=== PATIENT | female | born 1945 | race Caucasian/White ===

== ENCOUNTER 2024-12-23 07:55 | Inpatient (IN) ==
--- NOTE | 2024-12-03 13:51 | PAT Medication Instructions ---
Medication Instructions Date of Service December 03, 2024 Home Medications abaloparatide (Tymlos) 80 mcg subcut HS acetaminophen 650 mg tablet,extended release 1,300 mg PO TID ascorbic acid (vitamin C) 1,000 mg tablet (Vitamin C) 1,000 mg PO QAM aspirin 81 mg tablet 81 mg PO QAM calcium carbonate (Calcium 600) 600 mg PO QAM cholecalciferol (vitamin D3) 125 mcg (5,000 unit) tablet (Vitamin D3) 125 mcg PO QAM coQ10 (ubiquinol) 200 mg capsule 200 mg PO QAM cyanocobalamin (vitamin B-12) 1,000 mcg tablet (Vitamin B-12) 1,000 mcg PO QAM hydrochlorothiazide 12.5 mg tablet 12.5 mg PO QAM lisinopril 10 mg tablet 10 mg PO QAM multivitamin 1 tab PO QAM pyridoxine (vitamin B6) 100 mg tablet (Vitamin B-6) 100 mg PO QAM simvastatin 20 mg tablet 20 mg PO HS ASK your prescriber and surgeon abaloparatide (Tymlos) 80 mcg subcut HS STOP taking 2 weeks before surgery coQ10 (ubiquinol) 200 mg capsule 200 mg PO QAM DO NOT take the morning of surgery ascorbic acid (vitamin C) 1,000 mg tablet (Vitamin C) 1,000 mg PO QAM calcium carbonate (Calcium 600) 600 mg PO QAM cholecalciferol (vitamin D3) 125 mcg (5,000 unit) tablet (Vitamin D3) 125 mcg PO QAM cyanocobalamin (vitamin B-12) 1,000 mcg tablet (Vitamin B-12) 1,000 mcg PO QAM hydrochlorothiazide 12.5 mg tablet 12.5 mg PO QAM lisinopril 10 mg tablet 10 mg PO QAM multivitamin 1 tab PO QAM pyridoxine (vitamin B6) 100 mg tablet (Vitamin B-6) 100 mg PO QAM Take morning of surgery With a small sip of water, OTHERWISE NOTHING TO EAT OR DRINK AFTER MIDNIGHT: acetaminophen 650 mg tablet,extended release 1,300 mg PO TID (if needed) aspirin 81 mg tablet 81 mg PO QAM (unless surgeon directed otherwise) Take evening before surgery acetaminophen 650 mg tablet,extended release 1,300 mg PO TID simvastatin 20 mg tablet 20 mg PO HS Other Notes If you have any questions please call us at [phone] or [phone] or [phone] or [phone]
--- NOTE | 2024-12-10 11:55 | Anesthesiology Consultation ---
Date of Service December 10, 2024 Assessment & Plan (1) Encounter for pre-operative examination: - awaiting surgeon ordered medical clearance, Dr. Ruth Avila 12/19/24. Chart Review Chart Review: Pending: Refer to Additional Notes / Consult section and Patient seen in Pre Admission Testing Teaching & Discussion Pre-Anesthesia Teaching/Discussion Notes: Instructed NPO after midnight before surgery, except medications with 15 cc of water. Medication instructions provided according to the PAT guidelines. History Surgery Operation Date: 12/23/24 09:10 Proposed Procedures p L4-S1 Decompression and Fusion, Spinal Cord Monitoring - Nic Rivera, Height/Weight Height: 5 ft Weight: 60.6 kg Allergies Allergy/AdvReac Type Severity Reaction Status Date / Time No Known Allergies Allergy Verified 12/02/24 15:58 Medications Home Medications Medication Instructions Recorded Confirmed Last Taken abaloparatide (Tymlos) 80 mcg subcut HS 12/02/24 12/02/24 Unknown acetaminophen 650 mg 1,300 mg PO TID 12/02/24 12/02/24 Unknown tablet,extended release ascorbic acid (vitamin C) 1,000 mg 1,000 mg PO QAM 12/02/24 12/02/24 Unknown tablet (Vitamin C) aspirin 81 mg tablet 81 mg PO QAM 12/02/24 12/02/24 Unknown calcium carbonate (Calcium 600) 600 mg PO QAM 12/02/24 12/02/24 Unknown cholecalciferol (vitamin D3) 125 125 mcg PO QAM 12/02/24 12/02/24 Unknown mcg (5,000 unit) tablet (Vitamin D3) coQ10 (ubiquinol) 200 mg capsule 200 mg PO QAM 12/02/24 12/02/24 Unknown cyanocobalamin (vitamin B-12) 1,000 mcg PO QAM 12/02/24 12/02/24 Unknown 1,000 mcg tablet (Vitamin B-12) hydrochlorothiazide 12.5 mg tablet 12.5 mg PO QAM 12/02/24 12/02/24 Unknown lisinopril 10 mg tablet 10 mg PO QAM 12/02/24 12/02/24 Unknown multivitamin 1 tab PO QAM 12/02/24 12/02/24 Unknown pyridoxine (vitamin B6) 100 mg 100 mg PO QAM 12/02/24 12/02/24 Unknown tablet (Vitamin B-6) simvastatin 20 mg tablet 20 mg PO HS 12/02/24 12/02/24 Unknown Past Medical History Medical History (Updated 12/10/24 @ 12:18 by Katarina Perales PA-C) Hyperlipidemia Hypertension controlled, stable per pt Osteoarthritis Osteoporosis Patient denies h/o stroke, seizures, heart attack, heart failure, DM, blood clots/DVTs or blood transfusions. Exercise / Class Metabolic Activity III < 4 Walking/Shop/Light housework (ambulates with walker, denies chest discomfort or shortness of breath with usual activities) Past Family History Family History Other No family history of adverse response to anesthesia Past Surgical History Surgical History History of bilateral cataract extraction History of bilateral tubal ligation History of section x2 History of colonoscopy History of thyroid surgery had benign mass removed was told she had "thyroiditis" History of wisdom tooth extraction Past Anesthesia History No Hx of Anesthesia Complications and No Family Hx of Anesthesia Complications History of PONV No Hx of PONV and No Hx of Motion Sickness Social History Smoking Status: Never smoker Do You Dip or Chew Tobacco: No Hx Alcohol Use: No Hx Substance Use: No Review of Systems Patient denies chest pain, shortness of breath, dyspnea on exertion, snoring, witnessed apneas, reflux, fever, chills, cough, wheezing, or palpitations. Physical Exam Vital Signs Vitals BP 114/69 P 70 TEMP 98.6 SP02 96% on RA RESP 18 Physical Patient resting comfortably in chair in no acute distress, alert and oriented, responding appropriately throughout visit Full cervical extension range of motion without pain TMD 3.5 finger breadths Mallampati Score 2 Dentition: several caps; denies chipped or loose teeth, crowns, implants or bridges Lungs: normal respiratory effort. Good air movement, clear throughout to auscultation, no adventitious breath sounds Cardiac: regular rate and rhythm, no murmurs noted Carotid arteries: negative bruit bilat Lab Results Anesthesia Preop Results Results Anesthesia Widget: WBC 10.55 K/ul (4.8-10.8) 12/10/24 Hgb 11.1 g/dl (12.0-16.0) L 12/10/24 Hct 32.5 % (37.0-47.0) L 12/10/24 Plt 309 K/uL (130-400) 12/10/24 Na 134 mmol/L (136-145) L 12/10/24 K 4.2 mmol/L (3.5-5.1) 12/10/24 Cl 100 mmol/L (98-107) 12/10/24 CO2 27 mmol/L (21-32) 12/10/24 BUN 15 mg/dl (6-23) 12/10/24 Creat 0.54 mg/dl (0.6-1.2) L 12/10/24 Glucose Level 98 mg/dl (70-99(Fasting)) 12/10/24 PT 10.8 Seconds (9.0-12.0) 12/10/24 PTT 26 Seconds (21-31) 12/10/24 INR 1.0 (0.9-1.1) 12/10/24 Urine Color Yellow 12/10/24 Urine Appearance Clear (Clear) 12/10/24 Urine pH 7.5 (4.5-7.5) 12/10/24 Urine Specific [place] 1.015 (1.000-1.030) 12/10/24 Urine Protein Negative (Negative) 12/10/24 Urine Glucose (UA) Negative (Negative) 12/10/24 Urine Ketones Trace (Negative) H 12/10/24 Urine Blood Negative (Negative) 12/10/24 Urine Nitrite Negative (Negative) 12/10/24 Urine Bilirubin Negative (Negative) 12/10/24 Urine Urobilinogen Negative (Negative) 12/10/24 Urine Leukocyte Esterase Negative (Negative) 12/10/24 Blood Type A Positive 12/10/24 Antibody Screen NEGATIVE 12/10/24 Testing Electrocardiogram Date: 12/10/24 NSR, rate 69 bpm Chest X-Ray Date: 12/10/24 No acute findings.
[2024-12-23] MEDS ORDERED: PROPOFOL IV EMULSION 10 MG/ML 20 ML VIAL IV ONE (08:51)
[2024-12-23] MEDS ORDERED: GLYCOPYRROLATE 0.2 MG/ML VIAL ONE (08:51)
[2024-12-23] MEDS ORDERED: fentaNYL citrate PF 100 MCG/2 ML VIAL ONE (08:51)
[2024-12-23] MEDS ORDERED: ONDANSETRON INJ 2 MG/ML 2 ML VIAL ONE (08:51)
[2024-12-23] MEDS ORDERED: DEXAMETHASONE SOD INJ 4 MG/ML VIAL ONE (08:51)
[2024-12-23] MEDS ORDERED: LIDOCAINE 2% 2 ML VIAL/AMP(20MG/ML) INFIL ONE (08:51)
[2024-12-23] MEDS ORDERED: ROCURONIUM BROMIDE 10 MG/ML 5 ML VIAL IV ONE (08:51)
[2024-12-23] MEDS ORDERED: SUGAMMADEX SODIUM 200 MG/2 ML VIAL IV ONE (08:51)
[2024-12-23] MEDS: LR 15ML/HR IV SCH (08:55)
[2024-12-23] MEDS: LR 60ML/HR IV SCH (08:55)
[2024-12-23] MEDS: ACETAMINOPHEN 500 MG TAB PO SCH (08:56)
[2024-12-23] MEDS: GABAPENTIN 300 MG CAP PO SCH (08:56)
[2024-12-23] MEDS: CeleBREX 200 MG CAP PO SCH (08:56)
--- NOTE | 2024-12-23 09:03 | History & Physical Bridge Note ---
Date of Service December 23, 2024 History & Physical Bridge Note I have examined the patient, reviewed the History & Physical and in the interval since the performance of the History & Physical I have noted the following changes of clinical significance: no changes noted
--- NOTE | 2024-12-23 09:04 | History & Physical Report ---
Date of Service December 23, 2024 Assessment & Plan (1) Two-level lumbosacral spondylosis with radiculopathy: Plan: L4-S1 decompression and fusion History of Present Illness Chief Complaint: Back and leg pain Primary Care Provider: Ruth Avila MD This is a 79-year-old female presents with chronic persistent back and leg pain after failing course of nonoperative care she is here for surgical invention. Allergies Allergy/AdvReac Type Severity Reaction Status Date / Time No Known Allergies Allergy Verified 12/23/24 08:16 Home Medications Medication Instructions Recorded Confirmed Type abaloparatide (Tymlos) 80 mcg subcut 12/02/24 12/23/24 History acetaminophen 650 mg 1,300 mg PO TID 12/02/24 12/23/24 History tablet,extended release ascorbic acid (vitamin C) 1,000 mg 1,000 mg PO [facility] 12/02/24 12/23/24 History tablet (Vitamin C) aspirin 81 mg tablet 81 mg PO [facility] 12/02/24 12/23/24 History calcium carbonate (Calcium 600) 600 mg PO [facility] 12/02/24 12/23/24 History cholecalciferol (vitamin D3) 125 125 mcg PO [facility] 12/02/24 12/23/24 History mcg (5,000 unit) tablet (Vitamin D3) coQ10 (ubiquinol) 200 mg capsule 200 mg PO [facility] 12/02/24 12/23/24 History cyanocobalamin (vitamin B-12) 1,000 mcg PO [facility] 12/02/24 12/23/24 History 1,000 mcg tablet (Vitamin B-12) hydrochlorothiazide 12.5 mg tablet 12.5 mg PO [facility] 12/02/24 12/23/24 History lisinopril 10 mg tablet 10 mg PO [facility] 12/02/24 12/23/24 History multivitamin 1 tab PO [facility] 12/02/24 12/23/24 History pyridoxine (vitamin B6) 100 mg 100 mg PO [facility] 12/02/24 12/23/24 History tablet (Vitamin B-6) simvastatin 20 mg tablet 20 mg PO 12/02/24 12/23/24 History Past Med/Surg History Problem List (Updated 12/23/24 @ 09:03 by Nic Rivera DO) Two-level lumbosacral spondylosis with radiculopathy Encounter for pre-operative examination Medical History (Updated 12/23/24 @ 09:03 by Nic Rivera DO) Osteoarthritis Osteoporosis Hypertension controlled, stable per pt Hyperlipidemia Surgical History History of bilateral tubal ligation History of colonoscopy History of section x2 History of wisdom tooth extraction History of thyroid surgery had benign mass removed was told she had "thyroiditis" History of bilateral cataract extraction Family History Other No family history of adverse response to anesthesia Social History (System 12/02/24 @ 15:58 by Cary Guido) Smoking Status: Never smoker Second Hand Exposure: No; Do You Dip or Chew Tobacco: No; Tobacco Cessation Education Requested by Patient: No Hx Alcohol Use: No Hx Substance Use: No Preferred Language: [place]an Communication Ability: Effective Diesel Engine Specialist Required: No Beliefs That Will Affect Care: None Current Living Situation: Family Current Living Situation Comment: Daughter lives with pt Other Information That Helps Us Care for You: No Feels Safe at Home: Yes Safety Concerns: Feels Safe At This Time Assistive Devices: Glasses and Walker Physical Exam Physical Exam: Patient is alert and oriented Heart regular rhythm Lungs clear Results & Data Results & Data Vital Signs (Past 12 Hours) Vital Signs Temp Pulse Resp BP Pulse Ox O2 Del Method 12/23/24 08:21 36.7 C 81 20 149/70 H 97 Room Air
[2024-12-23] MEDS ORDERED: fentaNYL citrate PF 100 MCG/2 ML VIAL IV PRN (09:26)
[2024-12-23] MEDS ORDERED: ePHEDrine sulfate 50 MG/ML AMP IV PRN (09:26)
[2024-12-23] MEDS ORDERED: ATROPINE SULFATE 0.1 MG/ML 10ML SYR IV PRN (09:26)
[2024-12-23] MEDS ORDERED: ONDANSETRON INJ 2 MG/ML 2 ML VIAL IV PRN ×2 (09:26→14:05)
[2024-12-23] MEDS: ceFAZolin 2000MG 2,000 MG/15 ML SYR IV SCH (09:48)
[2024-12-23] MEDS: BUPIVACAINE/EPINEPHRINE 0.5% MPF 1:200,000 30 ML VIAL ONE (10:21)
[2024-12-23] MEDS: ceFAZolin 330 MG/ML 1 GM VIAL ONE ×2 (10:22→11:45)
[2024-12-23] MEDS: IOPAMIDOL INJ 61% 15 ML VIAL INSTIL ONE (11:05)
[2024-12-23] MEDS: FLOSEAL HEMOSTATIC MATRIX 10ML TOP ONE (11:45)
--- NOTE | 2024-12-23 12:00 | Operative Report ---
Post Operative Report Pre & Post Diagnosis Operation Date: 12/23/24 09:15 Pre-Op Diagnosis: #1 lumbosacral Spondylosis with Radiculopathy #2 spondylolisthesis L4-L5 L5-S1 #3 lumbar spinal stenosis Post-Op Diagnosis: Same I identified the patient and participated in the time-out.: Yes Procedure Operation Date: 12/23/24 09:15 Actual Procedures #1 lumbar decompression with bilateral medial facetectomies and foraminotomies L3-L4, L4-L5 and L5-S1 for #2 posterior spinal fusion L4-S1. #3 placed posterior instrumentation L4-S1 using Deras. #4 kyphoplasty L4 and S1 vertebral bodies. #5 interbody fusion L4-5 S1. #6 placement of Spira 13 x 26 mm at L5-S1. #7 placement infuse collagen sponge combined with Koros in the posterior lateral gutters and os design interbody space. #8 application of versa wrap of the exposed dura. Surgeon Nic Rivera, Enrichment Assistant Marisol Ann Estimated Blood Loss 200 Findings Consistent with Post-Op Diagnosis Specimens None Indications This is a 79-year-old female presents above-mentioned diagnosis of failed course of nonoperative care she is here for surgical invention. Description of Procedure Patient was met with identified informed consent obtained. Patient was then taken to the operative suite underwent and patient placed in prone position on the Nathan table atop the Enrique frame. All bony prominences well-padded eyes inspected to ensure no external precipice upon the. This point the lumbar spine was prepped and draped in normal sterile fashion. Sharp dissection with the assistance of Bovie cautery from down to and exposing the lamina transverse processes of L4-L5 and the sacral ala bilaterally. From a [place] fashion complete laminectomy of L5 was performed including bilateral medial facetectomies and foraminotomies addressing severe neural compression. This was followed by complete laminectomy of L4 with bilateral medial facetectomies and foraminotomies again addressing severe neural compression and lastly partial laminectomy of L3 with bilateral medial facetectomies to address all subarticular stenosis. In light of her history of osteoporotic compression fracture and osteopenia I then performed a preoperative kyphoplasty of L4 and S1 followed by placement of screws at L4 and S1 into the cement. L5 pedicle screws were also placed. The proper size dana was then contoured and placed. By way of transfer approach on the right a complete discectomy of L5-S1 was performed endplates guided to subcortically bone and a 13 x 26 mm spiral cage filled with os design bone graft tapped in position. Rods were then compressed locked in final position bilaterally. Transverse processes of L4-5 and the sac ral ala burred to subcortically bone. Infuse collagen sponge combined with Koros was placed in the posterolateral gutters. First wrap placed over the exposed dura. 15 round NAS drain inserted. The incision was then closed with 1 Vicryl the fascia 2-0 Vicryl subcutaneously and 4 Monocryl for final skin closure. Steri-Strips sterile dressing placed. Patient waken taken the PACU stable condition. Please note Marisol Ann was present of the entire procedure and on the patient positioning complex portion of the surgery and final skin closure. I attest to the content of the Intraoperative Record and any orders documented therein. Any exceptions are noted below.
--- NOTE | 2024-12-23 13:02 | Fluoroscopy Report ---
FL lumbar spine 2-3V CLINICAL HISTORY: L4-S1 DECOMPRESSION AND FUSION COMPARISON STUDY: None FLUOROSCOPY TIME: 67 seconds FLUOROSCOPY IMAGES: 3 EXPOSURE DOSE: 38 mGy FINDINGS: Fluoroscopy was provided for lower lumbar metallic fusion. IMPRESSION: Intraoperative fluoroscopy. ACT 112: Negative or not required by law. Electronically signed by: Tim Mendenhall M.D. 12/23/2024 1:01 PM
--- NOTE | 2024-12-23 13:51 | Anesthesiology Progress Note ---
Date of Service December 23, 2024 Anesthesia Post Procedure Vital Signs Vital Signs: Temp Pulse Pulse Resp BP BP Pulse Ox 12/23/24 13:35 58 L 16 106/50 L 99 12/23/24 13:25 63 18 110/54 L 100 12/23/24 13:15 36.4 C L 57 L 15 104/49 L 100 12/23/24 13:05 58 L 16 109/48 L 99 12/23/24 12:55 62 16 112/51 L 99 12/23/24 12:45 59 L 18 116/50 L 100 12/23/24 12:35 60 20 120/53 L 100 12/23/24 12:25 61 20 124/51 L 100 12/23/24 12:17 36.3 C L 73 20 137/55 L 100 12/23/24 08:21 36.7 C 81 20 149/70 H 97 O2 Del Method O2 Flow Rate 12/23/24 13:35 Nasal Cannula 2 12/23/24 13:25 Nasal Cannula 2 12/23/24 13:15 Nasal Cannula 2 12/23/24 13:05 Nasal Cannula 2 12/23/24 12:55 Nasal Cannula 2 12/23/24 12:45 Nasal Cannula 2 12/23/24 12:35 Nasal Cannula 2 12/23/24 12:25 Nasal Cannula 4 12/23/24 12:17 Nasal Cannula 4 12/23/24 08:21 Room Air Pain Intensity Lower Back: Pain Intensity: 2 Transfer of Care Handoff Completed per policy Notes Mental Status: alert / awake / arousable Patient Amnestic to Procedure: Yes Nausea / Vomiting: adequately controlled Pain: adequately controlled Airway Patency, RR, SpO2: stable & adequate BP & HR: stable & adequate Hydration State: stable & adequate Anesthetic Complications: no major complications apparent and Pt Satisfied with anesthetic care
[2024-12-23] MEDS ORDERED: NALOXONE HCL 0.4 MG/1 ML VIAL/CARP IV PRN (14:05)
[2024-12-23] MEDS ORDERED: LORazepam 0.5 MG TAB PO PRN (14:05)
[2024-12-23] MEDS ORDERED: LORazepam 2 MG/1 ML VIAL IV PRN (14:05)
[2024-12-23] MEDS ORDERED: SOD PHOSPHATE/SOD BIPHOSPHATE ENEMA 132 ML BTL PR PRN (14:05)
[2024-12-23] MEDS ORDERED: FAMOTIDINE 20 MG TAB PO PRN (14:05)
[2024-12-23] MEDS ORDERED: ALUMINUM/MAGNESIUM SUSP 30 ML UDC PO PRN (14:05)
[2024-12-23] MEDS ORDERED: METOCLOPRAMIDE HCL INJ 5 MG/ML 2 ML VIAL IV PRN (14:05)
[2024-12-23] MEDS ORDERED: DO NOT ADMINISTER FLU VACCINE PRN (14:05)
[2024-12-23] MEDS ORDERED: ONDANSETRON 4 MG OD TAB PO PRN (14:05)
[2024-12-23] MEDS ORDERED: HYDROmorphone INJ 1 MG/ML SYRINGE IV PRN (14:05)
[2024-12-23] MEDS ORDERED: hydrOXYzine HCl 25 MG TAB PO PRN (14:05)
[2024-12-23] MEDS ORDERED: diphenhydrAMINE Capsule 25 MG CAP PO PRN (14:05)
[2024-12-23] MEDS ORDERED: PROMETHAZINE 12.5 MG/50.5 ML BAG IV PRN (14:05)
[2024-12-23] MEDS ORDERED: ACETAMINOPHEN 1,000 MG/100 ML VIAL IV PRN (14:05)
[2024-12-23] MEDS ORDERED: DO NOT ADMINISTER PNEUMOCOCCAL VACCINE PRN (14:05)
[2024-12-23] MEDS ORDERED: MAGNESIUM HYDROXIDE SUSP 30 ML UDC PO PRN (14:05)
[2024-12-23] MEDS ORDERED: bisacodyL 10 MG SUPP PR PRN (14:05)
--- NOTE | 2024-12-23 15:35 | Consultation ---
Date of Consultation December 23, 2024 Assessment & Plan (1) Two-level lumbosacral spondylosis with radiculopathy: (2) Hyperlipidemia: (3) Hypertension: (4) Osteoporosis: Plan This is a 79 yr old F who has a significant PMH of HTN, HLD and osteoporosis who presents to ED 2/2 elective lumbar procedure. #Two-level lumbosacral spondylosis with radiculopathy #S/P L4-S1 decompression fusion, POD #[address] Rivera tolerated procedure well admitted to medical pain/wound management per ortho EBL 200ml, pre op hgb 11.1 #HTN: bp controlled, hold HCTZ, lisinopril until bp re evaluated in am. resume as able #HLD: continue statin, chronic, stable #Osteoporosis: chronic, stable continue nightly Tymlos when family brings in supply #DVT ppx: SCDS FULL CODE PCP: MD Margarita Dispo: admitted to medical Pt was seen and examined in collaboration with Dr. Chen, please see addendum I spent a total of 45 minutes coordinating, documenting and providing care for this patient excluding time spent in the performance of separately billed services or time spent by another provider/QHP. Thank you for this consultation. We will follow the patient with you during their hospital stay. You can reach a member of the [facility] Hospitalist Team 29/01 via hospitalist role on tiger text. Supervising Physician Co-Signing Physician Notes Attending Addendum: Case reviewed with the advanced practitioner. I have reviewed the advanced practitioner's documentation on the date of service referenced in note, and I agree with, and take responsibility for the plan of care. please refer to her notes for full details patient seen and examined, records reviewed by myself as well diagnoses and plan of care as per advanced practitioner's notes I spent a total of 25 minutes coordinating, documenting, and providing care for this patient, excluding time spent in the performance of separately billed services or time spent by another provider/QHP. Henry Chen MD History of Present Illness Requesting Physician: Dr. Rivera Reason for Consultation: Post op medical management Attending Physician: Nic Rivera DO History of Present Illness This is a 79 yr old F who has a significant PMH of HTN, HLD and osteoporosis who presents to ED 2/2 elective lumbar procedure. She underwent an L4-S1 decompression fusion by Dr. Rivera and tolerated the procedure well. Her 2 sons, daughter in law and another friend are at bedside. She tolerated the procedure well. She is having some incisional back pain. Denies f/c/s, chest pain, sob, n/v/d, change in bowel or urinary habits pre procedure. She did not take her BP meds this a.m. SHe follows with Dr. Avila in [place]. SHe endorses no post operative concerns. Allergies Allergy/AdvReac Type Severity Reaction Status Date / Time No Known Allergies Allergy Verified 12/23/24 08:16 Home Medications Medication Instructions Recorded Confirmed Type abaloparatide (Tymlos) 80 mcg subcut 12/02/24 12/23/24 History acetaminophen 650 mg 1,300 mg PO TID 12/02/24 12/23/24 History tablet,extended release ascorbic acid (vitamin C) 1,000 mg 1,000 mg PO [facility] 12/02/24 12/23/24 History tablet (Vitamin C) aspirin 81 mg tablet 81 mg PO [facility] 12/02/24 12/23/24 History calcium carbonate (Calcium 600) 600 mg PO [facility] 12/02/24 12/23/24 History cholecalciferol (vitamin D3) 125 125 mcg PO [facility] 12/02/24 12/23/24 History mcg (5,000 unit) tablet (Vitamin D3) coQ10 (ubiquinol) 200 mg capsule 200 mg PO [facility] 12/02/24 12/23/24 History cyanocobalamin (vitamin B-12) 1,000 mcg PO [facility] 12/02/24 12/23/24 History 1,000 mcg tablet (Vitamin B-12) hydrochlorothiazide 12.5 mg tablet 12.5 mg PO [facility] 12/02/24 12/23/24 History lisinopril 10 mg tablet 10 mg PO [facility] 12/02/24 12/23/24 History multivitamin 1 tab PO [facility] 12/02/24 12/23/24 History pyridoxine (vitamin B6) 100 mg 100 mg PO [facility] 12/02/24 12/23/24 History tablet (Vitamin B-6) simvastatin 20 mg tablet 20 mg PO 12/02/24 12/23/24 History Patient History Medical History Osteoarthritis Osteoporosis Hypertension controlled, stable per pt Hyperlipidemia Surgical History History of bilateral tubal ligation History of colonoscopy History of section x2 History of wisdom tooth extraction History of thyroid surgery had benign mass removed was told she had "thyroiditis" History of bilateral cataract extraction Family History Other No family history of adverse response to anesthesia Social History Smoking Status: Never smoker Second Hand Exposure: No; Do You Dip or Chew Tobacco: No; Tobacco Cessation Education Requested by Patient: No Hx Alcohol Use: No Hx Substance Use: No Preferred Language: Slovak Communication Ability: Effective Assistant Plant Control Operator Required: No Beliefs That Will Affect Care: None Current Living Situation: Family Current Living Situation Comment: Daughter lives with pt Other Information That Helps Us Care for You: No Feels Safe at Home: Yes Safety Concerns: Feels Safe At This Time Assistive Devices: Glasses and Walker Review of Systems Review of Systems: All systems reviewed & are unremarkable except as noted in HPI & below Physical Exam Physical Exam: Constitutional: WD/WN, vitals as above, NAD, sitting up in bed, pleasant, conversing easily Head: Normocephalic, Atraumatic Eyes: PERRL, conjunctivae normal, anicteric sclerae ENMT: external ear and nose normal, oropharynx normal Neck: trachea midline, no thyromegaly normal visual inspection Respiratory: normal respiratory effort, lungs clear to auscultation, no wheeze, rales, rhonchi. Normal insp/exp effort, no accessory muscle use Cardiovascular: RRR, no murmur, no edema Vessels: no JVD or carotid bruit Chest: normal inspection of chest Abdomen: normal bowel sounds, soft, nontender, no hepatosplenomegaly Musculoskeletal: no cyanosis or clubbing, arom x4, NAS drain with serosang drainage Skin: no rashes, warm and dry normal turgor Neurologic: no face palsy, no dysarthria CN's II-XI intact bilaterally and moves all extremities Psychiatric: A+Ox3, euthymic affect : galloway draining yellow urine Results & Data Vital Signs (Past 12 Hours) Vital Signs Temp Pulse Pulse Resp BP BP Pulse Ox 12/23/24 14:35 36.4 C L 77 16 119/70 96 12/23/24 14:00 36.5 C 83 15 102/61 97 12/23/24 13:35 58 L 16 106/50 L 99 12/23/24 13:25 63 18 110/54 L 100 12/23/24 13:15 36.4 C L 57 L 15 104/49 L 100 12/23/24 13:05 58 L 16 109/48 L 99 12/23/24 12:55 62 16 112/51 L 99 12/23/24 12:45 59 L 18 116/50 L 100 12/23/24 12:35 60 20 120/53 L 100 12/23/24 12:25 61 20 124/51 L 100 12/23/24 12:17 36.3 C L 73 20 137/55 L 100 12/23/24 08:21 36.7 C 81 20 149/70 H 97 O2 Del Method O2 Flow Rate 12/23/24 14:35 Room Air 12/23/24 14:00 Room Air 12/23/24 13:35 Nasal Cannula 2 12/23/24 13:25 Nasal Cannula 2 12/23/24 13:15 Nasal Cannula 2 12/23/24 13:05 Nasal Cannula 2 12/23/24 12:55 Nasal Cannula 2 12/23/24 12:45 Nasal Cannula 2 12/23/24 12:35 Nasal Cannula 2 12/23/24 12:25 Nasal Cannula 4 12/23/24 12:17 Nasal Cannula 4 12/23/24 08:21 Room Air Laboratory Results I have independently reviewed and interpreted patient's admitting labs including CBC, CMP, PTT, PT/INR, UA Diagnostic Findings Lumbar Spine X-Ray 12/23/24 11:35 FL lumbar spine 2-3V CLINICAL HISTORY: L4-S1 DECOMPRESSION AND FUSION COMPARISON STUDY: None FLUOROSCOPY TIME: 67 seconds FLUOROSCOPY IMAGES: 3 EXPOSURE DOSE: 38 mGy FINDINGS: Fluoroscopy was provided for lower lumbar metallic fusion. IMPRESSION: Intraoperative fluoroscopy. ACT 112: Negative or not required by law. Electronically signed by: Tim Mendenhall M.D. 12/23/2024 1:01 PM Medications Administered Current Inpatient Medications Acetaminophen (Acetaminophen 500 Mg Tab) 1,000 mg PO PREOP MYLA Stop: 12/23/24 18:00 Last Admin: 12/23/24 08:56 Dose: 1,000 mg Acetaminophen (Acetaminophen 500 Mg Tab) 1,000 mg PO Q8H PRN PRN Reason: MILD Pain (1,2,3) & Pre PT Stop: 01/22/25 14:04 Al Hydrox/Mg Hydrox/Simethicone (Aluminum/Magnesium Susp 30 Ml Udc) 30 ml PO Q6H PRN PRN Reason: Dyspepsia Stop: 01/22/25 14:04 Aspirin (Aspirin 81 Mg Ectab) 81 mg PO QAM [facility] Stop: 01/23/25 08:59 Atropine Sulfate (Atropine Sulfate 0.1 Mg/Ml 10ml Syr) 0.5 mg IV Q1M PRN PRN Reason: PACU Use-HR<40 &/or Bradycardi Stop: 12/23/24 17:26 Bisacodyl (Bisacodyl 10 Mg Supp) 10 mg IN DAILY PRN PRN Reason: Constipation Stop: 01/22/25 14:04 Calcium Carbonate (Calcium Carbonate 1250mg Tab) 1 tab PO QAM [facility] Stop: 01/23/25 08:59 Celecoxib (Celebrex 200 Mg Cap) 200 mg PO PREOP [facility] Stop: 12/23/24 18:00 Last Admin: 12/23/24 08:56 Dose: 200 mg Cyanocobalamin (Cyanocobalamin (B-12) 500 Mcg Tablet) 1,000 mcg PO QAM [facility] Stop: 01/23/25 08:59 Diphenhydramine HCl (Diphenhydramine Capsule 25 Mg Cap) 25 mg PO Q6H PRN PRN Reason: Allergic Rhinitis/Insomnia Stop: 01/22/25 14:04 Ephedrine Sulfate (Ephedrine Sulfate 50 Mg/Ml Amp) 5 mg IV Q5M PRN PRN Reason: PACU Use Only-SBP<90 mmHg Stop: 12/23/24 17:26 Famotidine (Famotidine 20 Mg Tab) 20 mg PO Q12H PRN PRN Reason: Dyspepsia Stop: 01/22/25 14:04 Fentanyl Citrate (Fentanyl Citrate Pf 100 Mcg/2 Ml Vial) 25 mcg IV Q5M PRN PRN Reason: PACU Use Only-Pain Stop: 12/23/24 17:26 Gabapentin (Gabapentin 300 Mg Cap) 300 mg PO PREOP MYLA Stop: 12/23/24 18:00 Last Admin: 12/23/24 08:56 Dose: 300 mg Hydrochlorothiazide (Hydrochlorothiazide 25 Mg Tab) 12.5 mg PO QAM [facility] Stop: 01/23/25 08:59 Hydromorphone HCl (Hydromorphone Inj 0.5 Mg/0.5 Ml Syr) 0.5 mg IV Q3H PRN PRN Reason: MODERATE Pain(4,5,6)/Pre PT Stop: 01/06/25 14:04 Hydromorphone HCl (Hydromorphone Inj 1 Mg/Ml Syringe) 1 mg IV Q3H PRN PRN Reason: SEVERE Pain (7,8,9,10) Stop: 01/06/25 14:04 Hydroxyzine HCl (Hydroxyzine Hcl 25 Mg Tab) 25 mg PO Q8H PRN PRN Reason: Anxiety Stop: 01/22/25 14:04 Lactated Ringer's (Lr) 1,000 mls @ 15 mls/hr IV .Q24H MY[facility] Stop: 12/24/24 05:59 Last Infusion: 12/23/24 09:27 Dose: Infused Lactated Ringer's (Lr) 1,000 mls @ 60 mls/hr IV .[id number] MYLA Stop: 12/23/24 22:39 Last Admin: 12/23/24 08:55 Dose: Not Given Cefazolin Sodium (Ancef 2000mg) 2,000 mg in 15 mls @ 3.75 mls/min IV PREOP MYLA; Protocol Stop: 12/23/24 18:00 Last Admin: 12/23/24 09:48 Dose: 3.75 mls/min Acetaminophen (Ofirmev) 1,000 mg in 100 mls @ 400 mls/hr IV Q8H PRN PRN Reason: MILD Pain (1,2,3) & Pre PT Stop: 12/24/24 14:06 Cefazolin Sodium (Ancef 1000mg) 1,000 mg in 7.5 mls @ 2.5 mls/min IV Q8H MYLA; Protocol Stop: 12/24/24 02:17 Promethazine HCl (Phenergan) 12.5 mg in 50.5 mls @ 202 mls/hr IV Q6H PRN PRN Reason: Nausea And Vomiting Stop: 01/22/25 14:04 Dexamethasone 6 mg/ Syringe 1.5 mls @ 1 mls/min IV DAILY [facility] Stop: 12/26/24 09:02 Influenza Virus Vaccine Quadrival (Do Not Administer Flu Vaccine) 1 each N/A PRN PRN PRN Reason: Notification Stop: 01/22/25 14:04 Lisinopril (Lisinopril 10 Mg Tab) 10 mg PO QAM [facility] Stop: 01/23/25 08:59 Lorazepam (Lorazepam 0.5 Mg Tab) 0.5 mg PO Q8H PRN PRN Reason: Sedation/Anxiety Stop: 01/22/25 14:04 Lorazepam (Lorazepam 2 Mg/1 Ml Vial) 0.5 mg IV Q8H PRN PRN Reason: Sedation/Anxiety Stop: 01/22/25 14:04 Magnesium Hydroxide (Magnesium Hydroxide Susp 30 Ml Udc) 30 ml PO Q24H PRN PRN Reason: Constipation Stop: 01/22/25 14:04 Metoclopramide HCl (Metoclopramide Hcl Inj 5 Mg/Ml 2 Ml Vial) 10 mg IV Q6H PRN PRN Reason: Nausea &/or Vomiting Stop: 01/22/25 14:04 Miscellaneous (Order Awaiting Action - Tymlos (Abaloparatide)) 1 each N/A QS [facility] Stop: 01/22/25 15:59 [facility] ([facility] Tab) [facility] [place]: 01/23/25 08:59 Naloxone HCl (Naloxone Hcl 0.4 Mg/1 Ml Vial/Carp) 0.1 mg IV Q5M PRN PRN Reason: Oversedation/Resp depression Stop: 01/22/25 14:04 Ondansetron HCl (Ondansetron Inj 2 Mg/Ml 2 Ml Vial) 4 mg IV ONCE PRN PRN Reason: PACU Use Only-Nausea/Vomiting Stop: 12/23/24 17:26 Ondansetron HCl (Ondansetron Inj 2 Mg/Ml 2 Ml Vial) 4 mg IV Q6H PRN PRN Reason: Nausea &/or Vomiting Stop: 01/22/25 14:04 Ondansetron HCl (Ondansetron 4 Mg Od Tab) 4 mg PO Q6H PRN PRN Reason: Nausea Stop: 01/22/25 14:04 Oxycodone HCl (Oxycodone Hcl Ir 5 Mg Tab (Immediate Release)) 5 - 10 mg PO Q4H PRN PRN Reason: MOD/SEV Pain & Pre PT Stop: 01/06/25 14:04 Pneumococcal Polyvalent Vaccine (Do Not Administer Pneumococcal Vaccine) 1 each N/A PRN PRN PRN Reason: Notification Stop: 01/22/25 14:04 Polyethylene Glycol (Polyethylene (Miralax) 17 Gm Pack) 17 gm PO Q6 [facility] Stop: 01/23/25 05:59 Pyridoxine HCl (Pyridoxine Hcl 50 Mg Tab) 100 mg PO QAM [facility] Stop: 01/23/25 08:59 Senna/Docusate Sodium (Docusate Sodium/Senna 50/8.6mg Tab) 2 tab PO HS [facility] Stop: 01/22/25 20:59 Simvastatin (Simvastatin 20 Mg Tab) 20 mg PO HS [facility] Stop: 01/22/25 20:59 Sodium Biphosphate/Sodium Phosphate (Sod Phosphate/Sod Biphosphate Enema 132 Ml Btl) 132 ml IN ONE PRN PRN Reason: Constipation Stop: 01/22/25 14:04 Tramadol HCl (Tramadol Hcl 50 Mg Tablet) 50 - 100 mg PO Q4H PRN PRN Reason: MOD/SEV Pain & Pre PT Stop: 01/22/25 14:04 Vitamin D (Cholecalciferol 125 Mcg (5,000 Units) Tab) 125 mcg PO QAM [facility] Stop: 01/23/25 08:59 ECG Additional Comments: I have independently reviewed and interpreted patient's admitting EKG which revealed: NSR, 69bpm, qtc 405ms
[2024-12-23] MEDS: ceFAZolin 1000MG 1,000 MG/7.5 ML SYR IV SCH (17:38)
[2024-12-23] MEDS: SIMVASTATIN 20 MG TAB PO SCH (21:41)
[2024-12-23] MEDS: DOCUSATE SODIUM/SENNA 50/8.6MG TAB PO SCH (21:41)
[2024-12-24] MEDS: oxyCODONE HCL IR 5 MG TAB (IMMEDIATE RELEASE) PO PRN (02:57)
[2024-12-24] MEDS: POLYETHYLENE (MIRALAX) 17 GM PACK PO SCH (05:43)
[2024-12-24 05:54] LABS: Basophils # (auto) 0.01 K/uL (0.00-0.20); Basophils % (auto) 0.1 %; Hematocrit (blood only) 23.5 % (37.0-47.0); Hemoglobin 7.9 g/dl (12.0-16.0); Immature Granulocytes # (auto) 0.12 K/uL (0.01-0.20); Immature Granulocytes % (auto) 0.8 %; Lymphocytes # (auto) 1.86 K/uL (1.20-3.40); Lymphocytes % (auto) 11.7 %; Mean Corpuscular Hemoglobin 32.9 pg (25.0-34.0); Mean Corpuscular Hgb Conc 33.6 g/dL (32.0-36.0); Mean Corpuscular Volume 97.9 fL (80.0-100.0); Mean Platelet Volume 9.5 fL (9.4-12.4); Monocytes % (auto) 6.9 %; Neutrophils # (auto) 12.84 K/uL (1.40-6.50); Neutrophils % (auto) 80.5 %; Platelet Count 218 K/uL (130-400); RDW Coefficient of Variation 12.1 % (11.5-14.5); RDW Standard Deviation 43.9 fL (36.4-46.3); White Blood Count 15.93 K/ul (4.8-10.8)
[2024-12-24 06:31] LABS: BUN Creatinine Ratio 34.4 (10-20); Calcium 8.5 mg/dl (8.6-10.3); Creatinine Clr Calc Pharmacy 57.6 ml/min; Potassium 4.6 mmol/L (3.5-5.1)
[2024-12-24 06:45] LABS: RBC Morphology Unremarkable
[2024-12-24] MEDS ORDERED: NON-FORMULARY MEDICATION (Coq10 (Ubiquinol) 200 mg Capsule) PO SCH (09:00)
[2024-12-24] MEDS: ASPIRIN 81 MG ECTAB PO SCH (09:16)
[2024-12-24] MEDS: dexAMETHasone 6 MG in SYRINGE 0 ML IV SCH (09:17)
[2024-12-24] MEDS: CHOLECALCIFEROL 125 MCG (5,000 UNITS) TAB PO SCH (09:17)
[2024-12-24] MEDS: MULTIVITAMIN TAB PO SCH (09:17)
[2024-12-24] MEDS: CYANOCOBALAMIN (B-12) 500 MCG TABLET PO SCH (09:17)
[2024-12-24] MEDS: PYRIDOXINE HCL 50 MG TAB PO SCH (09:18)
[2024-12-24] MEDS: CALCIUM CARBONATE 1250MG TAB PO SCH (09:18)
[2024-12-24] MEDS: traMADol HCL 50 MG TABLET PO PRN (11:14)
--- NOTE | 2024-12-24 11:31 | Orthopedic Progress Note ---
Date of Service December 24, 2024 Assessment & Plan (1) Two-level lumbosacral spondylosis with radiculopathy: Plan: At this time initiate physical therapy occupational therapy. Assess progress and consider possible discharge home versus rehab. Admission and Anticipated Discharge Date Admission Date: December 23, 2024 Subjective Back pain controlled leg symptoms improved. Physical Exam Physical Exam: Patient currently bed. Is constricted testing. Results & Data Vital Signs (Past 12 Hours) Vital Signs Temp Pulse Resp BP BP Pulse Ox O2 Del Method 12/24/24 10:41 36.8 C 80 16 111/65 94 Room Air 12/24/24 07:04 36.7 C 75 16 116/68 96 Room Air 12/24/24 02:54 36.5 C 71 16 114/68 97 Room Air
--- NOTE | 2024-12-24 15:01 | Hospitalist Progress Note ---
Date of Service December 24, 2024 Assessment & Plan (1) Two-level lumbosacral spondylosis with radiculopathy: (2) Hyperlipidemia: (3) Hypertension: (4) Osteoporosis: Plan This is a 79 yr old F who has a significant PMH of HTN, HLD and osteoporosis who presents to ED 2/2 elective lumbar procedure. #Two-level lumbosacral spondylosis with radiculopathy #S/P L4-S1 decompression fusion, POD #[address] Rivera -tolerated procedure well -admitted to medical -pain/wound management per ortho -continue incentive spirometry -trend hgb and creatinine, leukocyotosis, Hgb goal>7 -not medically ready for discharge today, will trend Hgb and leukocytosis tomorrow morning #HTN: -bp controlled, hold HCTZ, lisinopril until bp re evaluated in am. resume as able #HLD: -continue statin, chronic, stable #Osteoporosis: -chronic, stable continue nightly Tymlos when family brings in supply I spent a total of 35 minutes in direct patient care, including [id number] time with the patient and/or family, reviewing medical records, ordering and reviewing diagnostic tests, and coordinating care with other healthcare providers. This time includes: history taking, physical examination, medical decision making, counseling, ECG interpretation, imaging interpretation, lab interpretation, orders, and education, excluding time spent in the performance of separately billed services. Admission and Anticipated Discharge Date Admission Date: December 23, 2024 Subjective Patient seen and examined at bedside. Patient feeling well post procedure, ambulating well. Has some pain otherwise doing ok. Review of Systems Review of Systems: CONSTITUTIONAL: Patient denies fevers, chills, sweats and weight changes. EYES: Patient denies any visual symptoms. EARS, NOSE, AND THROAT: No difficulties with hearing. No symptoms of rhinitis or sore throat. CARDIOVASCULAR: Patient denies chest pains, palpitations, orthopnea and paroxysmal nocturnal dyspnea. RESPIRATORY: No dyspnea on exertion, no wheezing or cough. GI: No nausea, vomiting, diarrhea, constipation, abdominal pain, hematochezia or melena. : No urinary hesitancy or dribbling. No nocturia or urinary frequency. No abnormal urethral discharge. MUSCULOSKELETAL: back pain NEUROLOGIC: No chronic headaches, no seizures. Patient denies numbness, tingling or weakness. PSYCHIATRIC: Patient denies problems with mood disturbance. No problems with anxiety. ENDOCRINE: No excessive urination or excessive thirst. DERMATOLOGIC: Patient denies any rashes or skin changes. Physical Exam Physical Exam: Gen: A&O NAD HEENT: NCAT, EOMI, not icteric. External ears normal. No rhinorrhea. Moist mucous membranes. Neck: Supple, full range of motion, no observable masses, No meningeal sign. Lungs: No Respiratory distress. CV: RRR, no edema. Abdomen: Soft, nondistended, No rebound tenderness. MSK: No joint swelling, no redness. NAS drain noted draining red blood Skin: No rashes, petechiae, lesions. Normal color per patient. Neuro: Normal Gait, Grossly intact. Psych: Appropriate for situation. Results & Data Results & Data Vital Signs (Past 12 Hours) Vital Signs Temp Pulse Resp BP BP Pulse Ox O2 Del Method 12/24/24 10:41 36.8 C 80 16 111/65 94 Room Air 12/24/24 07:04 36.7 C 75 16 116/68 96 Room Air Laboratory Results -personally reviewed, reactive leukocytosis and post procedural Hgb drop noted Medications Administered Aspirin (Aspirin 81 Mg Ectab) 81 mg PO [facility] Stop: 01/23/25 08:59 Last Admin: 12/24/24 09:16 Dose: 81 mg Documented By: RAMAN Calcium Carbonate (Calcium Carbonate 1250mg Tab) 1 tab PO [facility] Stop: 01/23/25 08:59 Last Admin: 12/24/24 09:18 Dose: 1 tab Documented By: RAMAN Cyanocobalamin (Cyanocobalamin (B-12) 500 Mcg Tablet) 1,000 [facility] [place] Stop: 01/23/25 08:59 Last Admin: 12/24/24 09:17 Dose: 1,000 mcg Documented By: RAMAN Dexamethasone 6 mg/ Syringe 1.5 mls @ 1 mls/min IV DAILY [facility] Stop: 12/26/24 09:02 Last Admin: 12/24/24 09:17 Dose: 1 mls/min Documented By: RAMAN Miscellaneous (Order Awaiting Action - Tymlos (Abaloparatide)) 1 each N/A QS [facility] Stop: 01/22/25 15:59 Last Admin: 12/24/24 08:16 Dose: Not Given Documented By: Admin: 12/24/24 01:00 Dose: Not Given Documented By: Admin: 12/23/24 16:23 Dose: Not Given Documented By: RAUL Multivitamins (Multivitamin Tab) 1 tab PO [facility] Stop: 01/23/25 08:59 Last Admin: 12/24/24 09:17 Dose: 1 tab Documented By: RAMAN Oxycodone HCl (Oxycodone Hcl Ir 5 Mg Tab (Immediate Release)) 5 - 10 mg PO Q4H PRN PRN Reason: MOD/SEV Pain & Pre PT Stop: 01/06/25 14:04 Last Admin: 12/24/24 02:57 Dose: 5 mg Documented By: ANGI Polyethylene Glycol (Polyethylene (Miralax) 17 Gm Pack) 17 gm PO Q6 [facility] Stop: 01/23/25 05:59 Last Admin: 12/24/24 13:00 Dose: 17 gm Documented By: Admin: 12/24/24 05:43 Dose: 17 gm Documented By: ANGI Pyridoxine HCl (Pyridoxine Hcl 50 Mg Tab) 100 mg PO [facility] Stop: 01/23/25 08:59 Last Admin: 12/24/24 09:18 Dose: 100 mg Documented By: RAMAN Senna/Docusate Sodium (Docusate Sodium/Senna 50/8.6mg Tab) 2 tab PO [facility] Stop: 01/22/25 20:59 Last Admin: 12/23/24 21:41 Dose: 2 tab Documented By: ANGI Simvastatin (Simvastatin 20 Mg Tab) 20 mg PO [facility] Stop: 01/22/25 20:59 Last Admin: 12/23/24 21:41 Dose: 20 mg Documented By: ANGI Tramadol HCl (Tramadol Hcl 50 Mg Tablet) 50 - 100 mg PO Q4H PRN PRN Reason: MOD/SEV Pain & Pre PT Stop: 01/22/25 14:04 Last Admin: 12/24/24 11:14 Dose: 50 mg Documented By: RAMAN Vitamin D (Cholecalciferol 125 Mcg (5,000 Units) Tab) 125 mcg PO [facility] Stop: 01/23/25 08:59 Last Admin: 12/24/24 09:17 Dose: 125 mcg Documented By: RAMAN
[2024-12-24] MEDS: HYDROmorphone INJ 0.5 MG/0.5 ML SYR IV PRN (22:30)
[2024-12-25 07:43] LABS: Hematocrit (blood only) 22.8 % (37.0-47.0); Hemoglobin 7.8 g/dl (12.0-16.0); Mean Corpuscular Hemoglobin 33.5 pg (25.0-34.0); Mean Corpuscular Hgb Conc 34.2 g/dL (32.0-36.0); Mean Corpuscular Volume 97.9 fL (80.0-100.0); Platelet Count 244 K/uL (130-400); RDW Coefficient of Variation 12.1 % (11.5-14.5); RDW Standard Deviation 43.7 fL (36.4-46.3); Red Blood Count 2.33 M/uL (4.20-5.40); White Blood Count 19.95 K/ul (4.8-10.8)
[2024-12-25 08:04] LABS: Calcium 9.4 mg/dl (8.6-10.3); Creatinine Clr Calc Pharmacy 61.4 ml/min; Magnesium 1.6 mg/dl (1.7-2.4); Potassium 4.5 mmol/L (3.5-5.1)
--- NOTE | 2024-12-25 08:35 | Orthopedic Progress Note ---
Date of Service December 25, 2024 Assessment & Plan (1) Two-level lumbosacral spondylosis with radiculopathy: Plan: nely is postoperative day 2 status post lumbar decompression and fusion L4-S1. She will continue physical therapy today. Work on aggressive bowel regimen. DVT prophylaxis is in the form of teds and SCDs. Maintain NAS drain. Anticipate discharge home tomorrow Admission and Anticipated Discharge Date Admission Date: December 23, 2024 Subjective And is postoperative day 2 status post L4-S1 decompression and fusion. She is p assing flatus but no bowel movement. Leg pains improved. NAS drain output last shift was 60 cc. Yesterday in physical therapy Ambulating 225 feet. Review of Systems Review of Systems: All systems reviewed & are unremarkable except as noted in HPI & below Physical Exam Physical Exam: She is laying in bed in no acute distress Alert and oriented x 3 Strength is intact bilateral lower extremities Dressing is clean dry and intact with functioning NAS drain Results & Data Vital Signs (Past 12 Hours) Vital Signs Temp Pulse Resp BP Pulse Ox O2 Del Method 12/25/24 07:45 36.7 C 88 18 114/64 99 Room Air
[2024-12-25] MEDS: hydroCHLOROthiazide 25 MG TAB PO SCH (09:15)
[2024-12-25] MEDS: lisinopril 10 MG TAB PO SCH (09:16)
--- NOTE | 2024-12-25 14:56 | Hospitalist Progress Note ---
Date of Service December 25, 2024 Assessment & Plan (1) Two-level lumbosacral spondylosis with radiculopathy: (2) Hyperlipidemia: (3) Hypertension: (4) Osteoporosis: Plan This is a 79 yr old F who has a significant PMH of HTN, HLD and osteoporosis who presents to ED 2/2 elective lumbar procedure. #Two-level lumbosacral spondylosis with radiculopathy #S/P L4-S1 decompression fusion, POD #[address] Rivera -tolerated procedure well -admitted to medical -pain/wound management per ortho -continue incentive spirometry -trend hgb and creatinine, leukocyotosis, Hgb goal>7 -medically ready for discharge at thist time #Leukocytosis -no changes in hemodynamics or fevers -no symptoms -likely reactive in setting of procedure #Acute Blood Loss Anemia -expected in setting of procedure -stabilized #HTN: -bp controlled, hold HCTZ, lisinopril until bp re evaluated in am. resume as able #HLD: -continue statin, chronic, stable #Osteoporosis: -chronic, stable continue nightly Tymlos when family brings in supply I spent a total of 35 minutes in direct patient care, including [id number] time with the patient and/or family, reviewing medical records, ordering and reviewing diagnostic tests, and coordinating care with other healthcare providers. This time includes: history taking, physical examination, medical decision making, counseling, ECG interpretation, imaging interpretation, lab interpretation, orders, and education, excluding time spent in the performance of separately billed services. Admission and Anticipated Discharge Date Admission Date: December 23, 2024 Subjective Patient seen and examined in hallway while working with PT. Patient doing well today, pain controlled, ambulating well. No other symptoms at this time. Review of Systems Review of Systems: CONSTITUTIONAL: Patient denies fevers, chills, sweats and weight changes. EYES: Patient denies any visual symptoms. EARS, NOSE, AND THROAT: No difficulties with hearing. No symptoms of rhinitis or sore throat. CARDIOVASCULAR: Patient denies chest pains, palpitations, orthopnea and paroxysmal nocturnal dyspnea. RESPIRATORY: No dyspnea on exertion, no wheezing or cough. GI: No nausea, vomiting, diarrhea, constipation, abdominal pain, hematochezia or melena. : No urinary hesitancy or dribbling. No nocturia or urinary frequency. No abnormal urethral discharge. MUSCULOSKELETAL: back pain NEUROLOGIC: No chronic headaches, no seizures. Patient denies numbness, tingling or weakness. PSYCHIATRIC: Patient denies problems with mood disturbance. No problems with anxiety. ENDOCRINE: No excessive urination or excessive thirst. DERMATOLOGIC: Patient denies any rashes or skin changes. Physical Exam Physical Exam: Gen: A&O 3 NAD HEENT: NCAT, EOMI, not icteric. External ears normal. No rhinorrhea. Moist m ucous membranes. Neck: Supple, full range of motion, no observable masses, No meningeal sign. Lungs: No Respiratory distress. CV: RRR, no edema. Abdomen: Soft, nondistended, No rebound tenderness. MSK: No joint swelling, no redness. NAS drain noted draining red blood Skin: No rashes, petechiae, lesions. Normal color per patient. Neuro: Normal Gait, Grossly intact. Psych: Appropriate for situation. Results & Data Results & Data Vital Signs (Past 12 Hours) Vital Signs Temp Pulse Resp BP Pulse Ox O2 Del Method 12/25/24 14:32 36.8 C 83 16 122/70 95 Room Air 12/25/24 09:14 130/70 12/25/24 07:45 36.7 C 88 18 114/64 99 Room Air Laboratory Results -personally reviewed, stable Hgb, uptrending leukocytosis likely still reactionary given no fevers/hemodynamic changes/symptoms Medications Administered Aspirin (Aspirin 81 Mg Ectab) 81 mg PO [facility] Stop: 01/23/25 08:59 Last Admin: 12/25/24 08:17 Dose: 81 mg Documented By: Admin: 12/24/24 09:16 Dose: 81 mg Documented By: RAMAN Calcium Carbonate (Calcium Carbonate 1250mg Tab) 1 tab PO [facility] Stop: 01/23/25 08:59 Last Admin: 12/25/24 08:18 Dose: 1 tab Documented By: Admin: 12/24/24 09:18 Dose: 1 tab Documented By: RAMAN Cyanocobalamin (Cyanocobalamin (B-12) 500 Mcg Tablet) 1,[facility] [place] Stop: 01/23/25 08:59 Last Admin: 12/25/24 08:18 Dose: 1,000 mcg Documented By: Admin: 12/24/24 09:17 Dose: 1,000 mcg Documented By: RAMAN Hydrochlorothiazide (Hydrochlorothiazide 25 Mg Tab) 12.5 mg PO QAM [facility] Stop: 01/23/25 08:59 Last Admin: 12/25/24 09:15 Dose: 12.5 mg Documented By: ISAIAH Hydromorphone HCl (Hydromorphone Inj 0.5 Mg/0.5 Ml Syr) 0.5 mg IV Q3H PRN PRN Reason: MODERATE Pain(4,5,6)/Pre PT Stop: 01/06/25 14:04 Last Admin: 12/24/24 22:30 Dose: 0.5 mg Documented By: ANGI Dexamethasone 6 mg/ Syringe 1.5 mls @ 1 mls/min IV DAILY [facility] Stop: 12/26/24 09:02 Last Admin: 12/25/24 08:21 Dose: 1 mls/min Documented By: Admin: 12/24/24 09:17 Dose: 1 mls/min Documented By: RAMAN Lisinopril (Lisinopril 10 Mg Tab) [facility] [place] Stop: 01/23/25 08:59 Last Admin: 12/25/24 09:16 Dose: 10 mg Documented By: ISAIAH Multivitamins (Multivitamin Tab) [facility] [place] Stop: 01/23/25 08:59 Last Admin: 12/25/24 08:17 Dose: 1 tab Documented By: Admin: 12/24/24 09:17 Dose: 1 tab Documented By: RAMAN Tymlos ( Abaloparatide) ~ Non -Formulary Patient's Own Med 1 each SC HS [facility] Stop: 01/23/25 20:59 Last Admin: 12/24/24 22:25 Dose: 80 mcg Documented By: ANGI Oxycodone HCl (Oxycodone Hcl Ir 5 Mg Tab (Immediate Release)) 5 - 10 mg PO Q4H PRN PRN Reason: MOD/SEV Pain & Pre PT Stop: 01/06/25 14:04 Last Admin: 12/25/24 05:17 Dose: 5 mg Documented By: Admin: 12/24/24 19:30 Dose: 5 mg Documented By: Admin: 12/24/24 02:57 Dose: 5 mg Documented By: ANGI Polyethylene Glycol (Polyethylene (Miralax) 17 Gm Pack) 17 gm PO Q6 [facility] Stop: 01/23/25 05:59 Last Admin: 12/25/24 11:47 Dose: 17 gm Documented By: Admin: 12/25/24 05:17 Dose: 17 gm Documented By: Admin: 12/25/24 00:48 Dose: Not Given Documented By: Admin: 12/24/24 18:55 Dose: Not Given Documented By: Admin: 12/24/24 13:00 Dose: 17 gm Documented By: Admin: 12/24/24 05:43 Dose: 17 gm Documented By: ANGI Pyridoxine HCl (Pyridoxine Hcl 50 Mg Tab) 100 mg PO QAM [facility] Stop: 01/23/25 08:59 Last Admin: 12/25/24 08:17 Dose: 100 mg Documented By: Admin: 12/24/24 09:18 Dose: 100 mg Documented By: RAMAN Senna/Docusate Sodium (Docusate Sodium/Senna 50/8.6mg Tab) 2 tab PO HS [facility] Stop: 01/22/25 20:59 Last Admin: 12/24/24 22:25 Dose: 2 tab Documented By: Admin: 12/23/24 21:41 Dose: 2 tab Documented By: ANGI Simvastatin (Simvastatin 20 Mg Tab) 20 mg PO [facility] Stop: 01/22/25 20:59 Last Admin: 12/24/24 22:25 Dose: 20 mg Documented By: Admin: 12/23/24 21:41 Dose: 20 mg Documented By: ANGI Vitamin D (Cholecalciferol 125 Mcg (5,000 Units) Tab) 125 mcg PO QA [facility] Stop: 01/23/25 08:59 Last Admin: 12/25/24 08:17 Dose: 125 mcg Documented By: Admin: 12/24/24 09:17 Dose: 125 mcg Documented By: RAMAN
[2024-12-25] MEDS: MAGNESIUM SULFATE / D5W 1 GM/100 ML BAG IV SCH (15:03)
[2024-12-26 06:27] LABS: Hematocrit (blood only) 24.3 % (37.0-47.0); Hemoglobin 8.1 g/dl (12.0-16.0); Mean Corpuscular Hemoglobin 33.1 pg (25.0-34.0); Mean Corpuscular Hgb Conc 33.3 g/dL (32.0-36.0); Mean Corpuscular Volume 99.2 fL (80.0-100.0); Mean Platelet Volume 10.2 fL (9.4-12.4); Platelet Count 269 K/uL (130-400); RDW Coefficient of Variation 12.2 % (11.5-14.5); RDW Standard Deviation 44.6 fL (36.4-46.3); Red Blood Count 2.45 M/uL (4.20-5.40); White Blood Count 21.19 K/ul (4.8-10.8)
[2024-12-26 07:11] LABS: Calcium 9.7 mg/dl (8.6-10.3); Magnesium 1.8 mg/dl (1.7-2.4); Potassium 3.8 mmol/L (3.5-5.1)
[2024-12-26 07:17] LABS: BUN Creatinine Ratio 33.3 (10-20); Creatinine Clr Calc Pharmacy 64.7 ml/min
[2024-12-26 09:50] VITALS: BP 108/65; PULSE 93; RESP 17; TEMP 97.9; O2SAT 99
--- NOTE | 2024-12-26 10:15 | Discharge Summary ---
Date of Service December 26, 2024 Admission HPI Per Admitting Provider This is a 79-year-old female presents with chronic persistent back and leg pain after failing course of nonoperative care she is here for surgical invention. Principal Diagnosis Multilevel lumbar spondylosis with radiculopathy Discharge Data Allergies Allergy/AdvReac Type Severity Reaction Status Date / Time No Known Allergies Allergy Verified 12/23/24 08:16 Consultations 12/23/24 14:05 Consult Hospitalist Routine Procedures Performed Operation Date: 12/23/24 09:15 Actual Procedures p L4-S1 Decompression and Fusion with Cement - Nic Rivera DO Ordered Studies 12/23/24 11:35 FL lumbar spine 2-3V Routine Hospital Course (1) Two-level lumbosacral spondylosis with radiculopathy: Patient underwent multilevel lumbar decompression fusion tolerated this well stay to orthopedic for postoperative. Postop release progressed appropriately. Tolerating physical therapy. NAS drain decreasing. Excellent strength testing. Pain control. Subsidy discharged home. Discharge orders and instructions found in the chart for further review. Total Time Total Time Spent Total Time Spent (In Minutes): 20 minutes Discharge Plan Discharge Items Patient Disposition: Home - Self-Care Reason For Visit: Lumbosacral Spondylosis with Radiculopathy Discharge Diagnosis: Lumbar spondylosis with radiculopathy Activity: As commented below Non-emergency contact: Primary Care Provider Call non-emergency contact if: you have any medication questions Follow-up/Referrals: Ruth Avila MD [Primary Care Provider] - 01/01/25 1:45 pm Diet: Regular Addtl Attending Provider Instructions: ACTIVITY RECOMMENDATIONS: SELF CARE INSTRUCTIONS AFTER THORACIC/LUMBAR FUSIONS 1. You may walk to your tolerance. It is good exercise for your legs and back. Expect some back and intermittent leg aches and pains. 2. You may perform "counter-top" level activities (make a sandwich, pete with a project, etc.). 3. No bending or lifting of more than 10 pounds or back twisting of any nature (roll like a log when turning in bed). 4. You may ride in a car for 20-30 minutes at a time. No driving until after your first visit with your doctor. 5. Frequent changes of position and restricting sitting to 30 minutes at a time will help limit the amount of back spasms and stiffness you may experience. 6. You may discontinue the use of ambulatory aids (cane, crutches, etc.) once your strength and confidence allow. 7. You may quality process engineer the shower and let water strike your incision when you arrive home at least once daily. Do not take a tub bath, sit in a hot tub or go into a swimming pool until after your first recheck in the office. 8. You may resume previous diet. SPECIAL CARE INSTRUCTIONS: VERY IMPORTANT TO READ AND REVIEW A. Your surgical incision has been closed with a cosmetic suture under the skin that will dissolve in about 6 weeks. In 14 days, you can use a pair of clean scissors and cut the suture that is left outside of the skin at the ends of your incision. 1. The small skin tapes can be removed 7 days after surgery if they have not fallen off by that point. 2. You may keep the wound open to air as much as possible to promote healing after post-op day number 5 unless told otherwise by your doctor. 3. If you think the wound looks like it is becoming infected (redness or worsening drainage) and/or you are experiencing fever, chill or worsening back pain and muscle spasms, contact the office so that we may evaluate you as soon as possible. B. Complications are uncommon, but please contact us if you have any signs or symptoms of: 1. wound infection (fever higher than 102.5 degrees F, redness, separation of wound, drainage, or increasing pain from the incision) 2. blood clots in legs (pain, swelling, redness and warmth in legs) 3. urinary tract infection (fever higher than 102.5 degrees F, burning upon urination or increased frequency of urination) 4. nerve problems (inability to walk on your toes or heels, numbness, loss of bowel or bladder control) 5. any other symptoms that concern you C. Please call the office at if you have any concerns or questions about your operation or recovery. D. No smoking! Smoking drastically decreases the chance of a solid fusion. E. Do not take any anti-inflammatory medications (Indocin, Advil, Motrin, Aspirin, Naprosyn, etc.) as these may inhibit the chance of a solid fusion. Tylenol is okay to take for pain. MANAGING PAIN AFTER SPINAL SURGERY 1. Narcotic medication is intended for short-term use and will be provided for surgical pain. Surgical pain usually lasts for a period of 4-6 weeks. Narcotic medication includes Percocet, Vicodin, Darvocet, Tylenol #3 or Lortab. 2. Longer-term pain is more appropriately treated with non-narcotic medication such as Tylenol ES. 3. Muscle spasm is not appropriately treated with narcotics. Muscle relaxers such as Soma, Flexeril or Skelaxin can be used along with Tylenol ES. 4. Remember that we all live with some "aches and pains". This is not unusual or uncommon after an injury or as we get older. a. Back pain is expected and may include muscle spasms for 4 to 6 weeks after surgery. The pain should gradually improve. If the pain worsens for no apparent reason, please contact the office. b. Intermittent leg pain may also be experienced and should not be concerned about unless it worsens for no apparent reason. If so, please contact the office. 5. We will provide appropriate medication within the normal guidelines of their prescribed use. We will also be very cautious and aware of potential abuse and extended duration of patients' medication needs. a. Pain medications are for your comfort and to assist with sleep and rest so that the tissue can heal. They are not provided in order to return to normal activity and should not be used through the day. To do so or worsening pain at night can result from ongoing tissue damage and development of tolerance to the prescribed medicine. 6. Please allow 2-3 days to process refills. Prescriptions will not be mailed but must be picked up at the office. FOLLOW UP VISIT: Keep your scheduled follow-up appointment. Any questions, please call the office at . Pending Studies at Discharge: No Stand-Alone Forms: My [facility] second hand information company, Smoking Cessation Medications and DC Order Prescriptions: New tramadol 50 mg tablet 50 mg PO Q6H PRN (Reason: pain, moderate) Qty: 30 0RF oxycodone 5 mg tablet 5 mg PO Q6H PRN (Reason: pain) Qty: 30 0RF Continued multivitamin Tablet 1 tab PO QAM ascorbic acid (vitamin C) [Vitamin C] 1,000 mg Tablet 1,000 mg PO QAM cyanocobalamin (vitamin B-12) [Vitamin B-12] 1,000 mcg Tablet 1,000 mcg PO QAM acetaminophen [Tylenol Arthritis] 650 mg Tablet Extended Release 1,300 mg PO TID calcium carbonate [Calcium 600] 600 mg calcium (1,500 mg) Tablet 600 mg PO QAM simvastatin 20 mg Tablet 20 mg PO HS lisinopril 10 mg Tablet 10 mg PO QAM aspirin 81 mg Tablet 81 mg PO QAM pyridoxine (vitamin B6) [Vitamin B-6] 100 mg Tablet 100 mg PO QAM hydrochlorothiazide 12.5 mg Tablet 12.5 mg PO QAM cholecalciferol (vitamin D3) [Vitamin D3] 125 mcg (5,000 unit) Tablet 125 mcg PO QAM coQ10 (ubiquinol) 200 mg Capsule 200 mg PO QAM Tymlos 80 mcg (3,120 mcg/1.56 mL) Pen Injector 80 mcg SUBCUT HS Rx Instructions: inject into abdomen; do not inject within 2 inches of belly button/navel; rotate sites Discharge Orders: Discharge Order (Routine); Ordered 12/26/24 Ordered By: Nic Rivera Admission Data Admit Date/Time: 12/23/24 12:06 Attending Provider: Nic Rivera Admit Provider: Nic Rivera Primary Care Provider: Ruth Avila Other Providers: Lucita Hayward; [facility]
--- NOTE | 2024-12-26 12:24 | Hospitalist Progress Note ---
Date of Service December 26, 2024 Assessment & Plan (1) Two-level lumbosacral spondylosis with radiculopathy: (2) Hyperlipidemia: (3) Hypertension: (4) Osteoporosis: Plan This is a 79 yr old F who has a significant PMH of HTN, HLD and osteoporosis who presents to ED 2/2 elective lumbar procedure. #Two-level lumbosacral spondylosis with radiculopathy #S/P L4-S1 decompression fusion, POD #[address] Rivera -tolerated procedure well -admitted to medical -pain/wound management per ortho -continue incentive spirometry -trend hgb and creatinine, leukocyotosis, Hgb goal>7 -medically ready for discharge at thist time, f/u CBC in one week #Leukocytosis -no changes in hemodynamics or fevers -no symptoms -likely reactive in setting of procedure #Acute Blood Loss Anemia -expected in setting of procedure -stabilized #HTN: -bp controlled, hold HCTZ, lisinopril until bp re evaluated in am. resume as able #HLD: -continue statin, chronic, stable #Osteoporosis: -chronic, stable continue nightly Tymlos when family brings in supply I spent a total of 35 minutes in direct patient care, including [id number]-[id number] time with the patient and/or family, reviewing medical records, ordering and reviewing diagnostic tests, and coordinating care with other healthcare providers. This time includes: history taking, physical examination, medical decision making, counseling, ECG interpretation, imaging interpretation, lab interpretation, orders, and education, excluding time spent in the performance of separately billed services. Admission and Anticipated Discharge Date Admission Date: December 23, 2024 Subjective Patient seen and examined at bedside. Patient doing well today. Feels ready to go home. Discussed holding some BP meds at home in post op setting. Review of Systems Review of Systems: CONSTITUTIONAL: Patient denies fevers, chills, sweats and weight changes. EYES: Patient denies any visual symptoms. EARS, NOSE, AND THROAT: No difficulties with hearing. No symptoms of rhinitis or sore throat. CARDIOVASCULAR: Patient denies chest pains, palpitations, orthopnea and paroxysmal nocturnal dyspnea. RESPIRATORY: No dyspnea on exertion, no wheezing or cough. GI: No nausea, vomiting, diarrhea, constipation, abdominal pain, hematochezia or melena. : No urinary hesitancy or dribbling. No nocturia or urinary frequency. No abnormal urethral discharge. MUSCULOSKELETAL: back pain NEUROLOGIC: No chronic headaches, no seizures. Patient denies numbness, tingling or weakness. PSYCHIATRIC: Patient denies problems with mood disturbance. No problems with anxiety. ENDOCRINE: No excessive urination or excessive thirst. DERMATOLOGIC: Patient denies any rashes or skin changes. Physical Exam Physical Exam: Gen: A&O 3 NAD HEENT: NCAT, EOMI, not icteric. External ears normal. No rhinorrhea. Moist mucous membranes. Neck: Supple, full range of motion, no observable masses, No meningeal sign. Lungs: No Respiratory distress. CV: RRR, no edema. Abdomen: Soft, nondistended, No rebound tenderness. MSK: No joint swelling, no redness. NAS drain noted draining red blood Skin: No rashes, petechiae, lesions. Normal color per patient. Neuro: Normal Gait, Grossly intact. Psych: Appropriate for situation. Results & Data Results & Data Vital Signs (Past 12 Hours) Vital Signs Temp Pulse Resp BP Pulse Ox O2 Del Method 12/26/24 09:49 36.6 C 93 H 17 108/65 99 Room Air Laboratory Results -personally reviewed, leukocytosis uptrending but no signs or symptoms of infection at this time, hemodynamically stable Medications Administered Aspirin (Aspirin 81 Mg Ectab) 81 mg PO [facility] Stop: 01/23/25 08:59 Last Admin: 12/26/24 09:54 Dose: 81 mg Documented By: Admin: 12/25/24 08:17 Dose: 81 mg Documented By: Admin: 12/24/24 09:16 Dose: 81 mg Documented By: RAMAN Calcium Carbonate (Calcium Carbonate 1250mg Tab) 1 tab PO [facility] Stop: 01/23/25 08:59 Last Admin: 12/26/24 09:54 Dose: 1 tab Documented By: Admin: 12/25/24 08:18 Dose: 1 tab Documented By: Admin: 12/24/24 09:18 Dose: 1 tab Documented By: JUANITA Cyanocobalamin (Cyanocobalamin (B-12) 500 Mcg Tablet) 1,000 mcg PO [facility] Stop: 01/23/25 08:59 Last Admin: 12/26/24 09:53 Dose: 1,000 mcg Documented By: Admin: 12/25/24 08:18 Dose: 1,000 mcg Documented By: Admin: 12/24/24 09:17 Dose: 1,000 mcg Documented By: RAMAN Hydrochlorothiazide (Hydrochlorothiazide 25 Mg Tab) [facility] [place] Stop: 01/23/25 08:59 Last Admin: 12/26/24 10:02 Dose: Not Given Documented By: Admin: 12/25/24 09:15 Dose: 12.5 mg Documented By: ISAIAH Hydromorphone HCl (Hydromorphone Inj 0.5 Mg/0.5 Ml Syr) 0.5 mg IV Q3H PRN PRN Reason: MODERATE Pain(4,5,6)/Pre PT Stop: 01/06/25 14:04 Last Admin: 12/24/24 22:30 Dose: 0.5 mg Documented By: PNM Lisinopril (Lisinopril 10 Mg Tab) 10 mg PO [facility] Stop: 01/23/25 08:59 Last Admin: 12/26/24 10:03 Dose: Not Given Documented By: Admin: 12/25/24 09:16 Dose: 10 mg Documented By: ISAIAH Multivitamins (Multivitamin Tab) 1 tab PO [facility] Stop: 01/23/25 08:59 Last Admin: 12/26/24 09:53 Dose: 1 tab Documented By: Admin: 12/25/24 08:17 Dose: 1 tab Documented By: Admin: 12/24/24 09:17 Dose: 1 tab Documented By: RAMAN Tymlos ( Abaloparatide) ~ Non -Formulary Patient's Own Med 1 each [facility] Stop: 01/23/25 20:59 Last Admin: 12/25/24 21:02 Dose: 80 mcg Documented By: Admin: 12/24/24 22:25 Dose: 80 mcg Documented By: PNM Oxycodone HCl (Oxycodone Hcl Ir 5 Mg Tab (Immediate Release)) 5 - 10 mg PO Q4H PRN PRN Reason: MOD/SEV Pain & Pre PT Stop: 01/06/25 14:04 Last Admin: 12/26/24 05:36 Dose: 5 mg Documented By: Admin: 12/25/24 19:34 Dose: 5 mg Documented By: Admin: 12/25/24 05:17 Dose: 5 mg Documented By: Admin: 12/24/24 19:30 Dose: 5 mg Documented By: Admin: 12/24/24 02:57 Dose: 5 mg Documented By: PNBimal Polyethylene Glycol (Polyethylene (Miralax) 17 Gm Pack) 17 gm PO Q6 [facility] Stop: 01/23/25 05:59 Last Admin: 12/26/24 11:47 Dose: Not Given Documented By: Admin: 12/26/24 05:36 Dose: 17 gm Documented By: Admin: 12/25/24 23:14 Dose: Not Given Documented By: Admin: 12/25/24 17:21 Dose: 17 gm Documented By: Admin: 12/25/24 11:47 Dose: 17 gm Documented By: Admin: 12/25/24 05:17 Dose: 17 gm Documented By: Admin: 12/25/24 00:48 Dose: Not Given Documented By: Admin: 12/24/24 18:55 Dose: Not Given Documented By: Admin: 12/24/24 13:00 Dose: 17 gm Documented By: Admin: 12/24/24 05:43 Dose: 17 gm Documented By: ANGI Pyridoxine HCl (Pyridoxine Hcl 50 Mg Tab) 100 mg PO QAM [facility] Stop: 01/23/25 08:59 Last Admin: 12/26/24 09:54 Dose: 100 mg Documented By: Admin: 12/25/24 08:17 Dose: 100 mg Documented By: Admin: 12/24/24 09:18 Dose: 100 mg Documented By: RAMAN Senna/Docusate Sodium (Docusate Sodium/Senna 50/8.6mg Tab) 2 tab PO HS [facility] Stop: 01/22/25 20:59 Last Admin: 12/25/24 21:02 Dose: 2 tab Documented By: Admin: 12/24/24 22:25 Dose: 2 tab Documented By: Admin: 12/23/24 21:41 Dose: 2 tab Documented By: ANGI Simvastatin (Simvastatin 20 Mg Tab) 20 mg PO HS [facility] Stop: 01/22/25 20:59 Last Admin: 12/25/24 21:02 Dose: 20 mg Documented By: Admin: 12/24/24 22:25 Dose: 20 mg Documented By: Admin: 12/23/24 21:41 Dose: 20 mg Documented By: ANGI Vitamin D (Cholecalciferol 125 Mcg (5,000 Units) Tab) [facility] [place] Stop: 01/23/25 08:59 Last Admin: 12/26/24 09:54 Dose: 125 mcg Documented By: Admin: 12/25/24 08:17 Dose: 125 mcg Documented By: Admin: 12/24/24 09:17 Dose: 125 mcg Documented By: RAMAN
[2024-12-26] MEDS: ACETAMINOPHEN 500 MG TAB PO PRN (12:36)
== END 2024-12-26 13:18 | disposition home health service (06) | DRG 427 ==
LOC: ASU 07:55 → MERGE 09:10 → 3E 12:06